=== PATIENT | male | born 2000 | race Two or more races ===

== ENCOUNTER 2022-01-19 17:33 | Emergency (ER) | payer OTHER ==
[2022-01-19 17:41] VITALS: BP 138/87
== END 2022-01-20 17:18 | disposition home or self-care (01) ==
LOC: ER 17:33
DX: M79.672 Pain in left foot (principal); W17.2XXA Fall into hole, initial encounter; Y93.66 Activity, soccer; Y92.89 Other specified places as the place of occurrence of the external cause; Y99.8 Other external cause status
CPT/HCPCS: 73630